=== PATIENT | female | born 1990 | race Two or more races ===

== ENCOUNTER 2017-06-10 09:25 | Emergency (ER) | payer SELFPAY ==
[~2017-06-10] VITALS: Ht 162.6 cm; Wt 70.3 kg
[2017-06-10 09:50] VITALS: BP 118/86
[2017-06-10] MEDS ORDERED: Acetaminophen 500mg (ES) tab ORAL ONE (10:00)
[2017-06-10] MEDS ORDERED: Tetanus/Diptheria/Pertussis Vaccine 0.5ml Syr IM ONE (10:00)
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
[2017-06-10 10:39] VITALS: BP 131/90
== END 2017-06-10 10:39 | disposition home or self-care (01) ==
LOC: EDBD 09:25 → EMR 09:50
DX: S05.10XA Contusion of eyeball and orbital tissues, unspecified eye, initial encounter (principal); M79.651 Pain in right thigh; S31.139A Puncture wound of abdominal wall without foreign body, unspecified quadrant without penetration into peritoneal cavity, initial encounter; Y04.2XXA Assault by strike against or bumped into by another person, initial encounter; Y93.9 Activity, unspecified; Y92.009 Unspecified place in unspecified non-institutional (private) residence as the place of occurrence of the external cause; Z23 Encounter for immunization
CPT/HCPCS: 90471; 90715; 96372; 99283